=== PATIENT | male | born 1990 | race Caucasian/White ===

== ENCOUNTER 2022-10-18 13:32 | Outpatient (REF) | payer SELFPAY ==
[2022-10-19 20:33] LABS: HIV-1/2 Ag & Ab Screen Negative (Negative)
[2022-10-20 11:08] LABS: Syphilis Serology (RPR) Negative (Negative)
[2022-10-20 13:25] LABS: Chlamydia Result Negative (Negative); GC Result Negative (Negative)
== END 2022-10-18 13:33 | disposition home or self-care (01) ==
LOC: NCHCN 13:32
PROVIDERS: PCP Family Medicine; Visit Provider Internal Medicine
DX: A59.09 Other urogenital trichomoniasis (principal); Z11.3 Encounter for screening for infections with a predominantly sexual mode of transmission; Z11.4 Encounter for screening for human immunodeficiency virus [HIV]
CPT/HCPCS: 87389; 87491; 87591; 86592

== ENCOUNTER 2022-11-12 16:54 | Outpatient (REF) | payer SELFPAY ==
[2022-11-14 13:33] LABS: Chlamydia Result Negative (Negative); GC Result Negative (Negative)
== END 2022-11-12 16:55 | disposition home or self-care (01) ==
LOC: NCHCN 16:54
PROVIDERS: PCP Family Medicine; Visit Provider Family Medicine
DX: R36.0 Urethral discharge without blood (principal); Z11.3 Encounter for screening for infections with a predominantly sexual mode of transmission
CPT/HCPCS: 87491; 87591